=== PATIENT | female | born 1945 | race Caucasian/White ===

== ENCOUNTER 2024-08-15 13:51 | Outpatient (POV) | payer MEDICARE, SELFPAY ==
[2024-08-15 15:05] VITALS: BP 117/60; PULSE 63; RESP 18; O2SAT 98; BMI 59.1
--- NOTE | 2024-08-15 16:14 | A.OFFVIS_ITS ---
[facility] Disclaimer: The information contained in this section may have been updated after the patient was seen, as this information can be updated by other users. Medical History (Updated 08/15/24 @ 16:17 by Holley Perez APRN) Arthritis Diverticulitis of colon GERD (gastroesophageal reflux disease) Sleep apnea Arrhythmia Cancer Anemia Surgical History (Updated 08/15/24 @ 14:36 by Merary Santos RN) Hx of cholecystectomy H/O hernia repair H/O tubal ligation Family History (Updated 08/15/24 @ 14:36 by Merary Santos RN) Other Cancer Diabetes Heart disease Rheumatoid arthritis Seizures Stroke Social History (Updated 08/15/24 @ 15:04 by Merary Santos RN) Smoking Status: Never smoker alcohol intake: never current occupational status: retired Travel in the last 8 weeks: None PM Subjective & Objective Subjective Subjective:: Patient is a pleasant 79-year-old female who presents today as a new patient. She is a referral from Paul Xiao office out of [facility]. Today she rates her pain an 8 out of 10. Patient states she has pain throughout her low back and hip area. She states this is gone on for years and progressively worsened. Patient does states she believes a lot of it is more wear and tear. She describes it as a constant nagging sensation that does interfere with her ability to perform activities of daily living such as cooking and cleaning. Patient has had multiple injections through the years that she states has given good improvement that some would provide 6 months of relief however over time she feels like they may not be as effective. Patient states her last injection just did not seem to last any time before she was back to her baseline. Patient states that Paul Xiao did recommend coming to our office to see about doing surgical intervention to see whether or not she even has to continue injections. Patient denies any prior surgery history. She does state that she has tried physical therapy and felt like this did nothing for her pain. Patient has also tried [id number] Tylenol and ibuprofen along with heat and ice and topicals with minimal relief. Patient does state that she does not like taking pain medications nor is she interested in that option. Her Renzo has been reviewed and is appropriate. Review of Systems: General: No recent weight changes, no fever, no sleep disturbances Respiratory: No cough, no shortness of air, no recurring pulmonary infections Cardiovascular/peripheral vascular: No chest pain, no palpitations, no edema, no shortness of breath Gastrointestinal: No new onset incontinence, normal bowel movements reported Genitourinary: No new onset incontinence Musculoskeletal: Low back pain, bilateral hip pain Psychiatric: [Normal mood/affect] Neurological: [Denies weakness in extremities], [denies balance issues] Pain at rest (0-10 scale): 8 Objective Objective:: Physical Exam: General: Alert and oriented x3, no acute distress, pleasant and cooperative Lungs: Respirations even and unlabored, symmetrical chest expansion Eyes: PERRL Musculoskeletal: Flexion and extension of lumbar [spine] somewhat guarded secondary to pain, [antalgic gait noted] point tenderness along bilateral SIs and bilateral greater trochanteric bursa's with positive bilateral Jay Jay's, Carlton's, Gaenslen's, compression and distraction exam Neurological: Speech clear, no gross sensory deficit Has patient had previous pain injection?: No Conservative treatment options previously tried: Home exercise plan Length of treatment: Longer than 12 weeks Meds Home Medications and Allergies Home Medications ?Medication ?Instructions ?Recorded ?Confirmed ?Type atorvastatin 20 mg tablet 20 mg PO DAILY Cholesterol 08/15/24 08/15/24 History midodrine 5 mg tablet 5 mg PO TID TMJ 08/15/24 08/15/24 History pantoprazole 40 mg tablet,delayed 40 mg PO DAILY GERD 08/15/24 08/15/24 History release New Prescriptions to Start Prescriptions: Allergies Allergy/AdvReac Type Severity Reaction Status Date / Time ciprofloxacin [From Cipro] Allergy Hives Verified 08/15/24 14:37 Assessment and Plan *Assessment and plan (1) Greater trochanteric bursitis of both hips: Status: Acute Category: Medical Code(s): M70.61 - Trochanteric bursitis, right hip; M70.62 - Trochanteric bursitis, left hip (2) Bilateral sacroiliitis: Status: Acute Category: Medical Code(s): M46.1 - Sacroiliitis, not elsewhere classified (3) Chronic low back pain: Status: Acute Category: Medical Code(s): M54.50 - Low back pain, unspecified; G89.29 - Other chronic pain Plan Patient is experiencing significant pain throughout her low back and bilateral hips. Patient did have point tenderness along her bilateral SIs and bilateral greater trochanteric bursa's during today's exam. Patient was discussed regarding the injection therapy and she does think she has had a recent SI injection. I did go over with her that I do think she would benefit from bilateral bursa injections. Risk and benefits were discussed with the patient and she would like to proceed forward with this plan of care. Patient has tried and failed conservative therapy including physical therapy and continued at home stretching exercise for longer than 12 weeks. I did also review with the patient for more consistent improvement she may be a beneficial candidate of SI stabilization or even intrathecal pain pump trial in the future. Patient was given educational handouts on both of these procedures and we will follow-up at later dates. Patient will be scheduled for bilateral greater trochanteric bursa injections under fluoroscopy. Patient has been instructed to contact the clinic with any concerns before the next appointment. Dr. Esteban has reviewed this note and agrees with this plan of care. This note was dictated using voice recognition software and make contain errors or omissions. All injections are used with Lidocaine or Bupivacaine and Depo Medrol.
== END 2024-08-15 23:59 | disposition home or self-care (01) ==
LOC: SC.PAIN 14:00
PROVIDERS: PCP Internal Medicine; Visit Provider Nurse Practitioner Family
DX: M70.61 Trochanteric bursitis, right hip (principal); M70.62 Trochanteric bursitis, left hip; M46.1 Sacroiliitis, not elsewhere classified; M54.50 Low back pain, unspecified; G89.29 Other chronic pain; Z73.89 Other problems related to life management difficulty
CPT/HCPCS: 99202; G0463

== ENCOUNTER 2024-09-10 12:55 | Day surgery (SDC) | payer MEDICARE, SELFPAY ==
[2024-09-10 13:04] VITALS: BP 126/56; PULSE 64; RESP 16; O2SAT 99; BMI 24.3
[2024-09-10] MEDS: methylPREDNISolone ACETATE 80MG/ML VIAL 80 MG (13:30)
[2024-09-10] MEDS: LIDOCAINE 1% 5ML PF VIAL 5 ML (13:30)
[2024-09-10] MEDS: BUPIVACAINE 0.25% 10ML INJ 25 MG IJ (13:31)
[2024-09-10 13:43] VITALS: BP 124/86; PULSE 63; RESP 16; O2SAT 99
--- NOTE | 2024-09-10 13:52 | P.PCN_ITS ---
Procedure Date: 09/10/24 Time: 13:40 Anesthesiologist:: John Beth CRNA Complications:: None Pre-procedure Diagnosis:: Left trochanteric bursitis Post-procedure Diagnosis:: Same Indications for Procedure:: Patient is a pleasant 79-year-old female who comes our clinic today for a scheduled bilateral trochanteric bursa injection of cortisone and local anesthetic. However, patient reports only the left side is painful. She reports having difficulty lying on her left side. She has extreme point tenderness over the left trochanteric bursa. Also, patient reports her main source of pain is across the lumbar area off the midline bilaterally. Upon examination she has extreme point tenderness over the bilateral sacroiliac joints. She has positive bilateral Carlton's test. Positive bilateral John's test. Positive bilateral Gaenslen's test. Positive bilateral sacroiliac joint compression test. Positive bilateral Jay Jay's test. She rates the pain over the bilateral sacroiliac joints as 9/10. Patient has tried and failed conservative measures such as NSAIDs, acetaminophen, home exercise program. The pain is decreased her ability to perform simple ADLs. We discussed bilateral sacroiliac joint injections. She wishes to proceed. Will submit paperwork for insurance approval. Procedure Details:: Procedure:Left trochanteric bursa injection under fluoroscopy We then moved to the left trochanteric bursa.~ C-arm fluoroscopy was used to view the left greater trochanter.~ The skin and subcutaneous tissues overlying the left greater trochanter were anesthetized using lidocaine, 1.5% and a 25- gauge needle.~ After this, a 22-gauge spinal needle was inserted and advanced until it contacted the left greater trochanter.~ Dye was injected and good spread was seen throughout the left trochanteric bursa. After this, approxi mately 5 mL of bupivacaine, 0.25% and Depo-Medrol, 40 mg was incrementally injected into the left trochanteric bursa.~ The patient tolerated the procedure well with no complications. Plan and Disposition:: Patient was discharged without incident.
== END 2024-09-10 13:43 | disposition home or self-care (01) ==
LOC: SC.PAINP 12:56
PROVIDERS: PCP Internal Medicine; Visit Provider Nurse Anesthetist, Certified Registered
DX: M70.62 Trochanteric bursitis, left hip (principal)
CPT/HCPCS: 20610; 77002; J1010

== ENCOUNTER 2024-10-02 13:17 | Outpatient (POV) | payer MEDICARE, SELFPAY ==
--- NOTE | 2024-10-02 14:04 | A.OFFVIS_ITS ---
[facility] Disclaimer: The information contained in this section may have been updated after the patient was seen, as this information can be updated by other users. Medical History Arthritis Diverticulitis of colon GERD (gastroesophageal reflux disease) Sleep apnea Arrhythmia Cancer Anemia Surgical History Hx of cholecystectomy H/O hernia repair H/O tubal ligation Family History Other Cancer Diabetes Heart disease Rheumatoid arthritis Seizures Stroke Social History Smoking Status: Never smoker alcohol intake: never current occupational status: retired Travel in the last 8 weeks: None PM Subjective & Objective Subjective Subjective:: Patient is a pleasant 79-year-old female who presents today for follow-up of bilateral trochanteric bursa injections on 09/10/2024. Today she rates her pain a 5 out of 10. Patient does state that the injections did provide at least 50% improvements and that is still seem to help some. She does state that last night for what ever reason she was having a little bit more pain along the left hip. Patient does state that she did go to her first physical therapy appointment and it was just the initial evaluation. She denies any new changes from our last visit. She does state that she still feels very off balance and has to rely on assistive aids such as walkers to help with ambulation. Patient does use [id number] medications and states that she has a lot of difficulty falling to sleep because she feels like she can toss and turn more. Her Renzo has been reviewed and is appropriate. Review of Systems: General: No recent weight changes, no fever, no sleep disturbances Respiratory: No cough, no shortness of air, no recurring pulmonary infections Cardiovascular/peripheral vascular: No chest pain, no palpitations, no edema, no shortness of breath Gastrointestinal: No new onset incontinence, normal bowel movements reported Genitourinary: No new onset incontinence Musculoskeletal: Left hip pain Psychiatric: [Normal mood/affect] Neurological: [Denies weakness in extremities], [denies balance issues] Pain at rest (0-10 scale): 5 Objective Objective:: Physical Exam: General: Alert and oriented x3, no acute distress, pleasant and cooperative Lungs: Respirations even and unlabored, symmetrical chest expansion Eyes: PERRL Musculoskeletal: Flexion and extension of lumbar [spine] somewhat guarded secondary to pain, [antalgic gait noted] Neurological: Speech clear, no gross sensory deficit Has patient had previous pain injection?: Yes Percent improvement in pain since last injection: 50% Conservative treatment options previously tried: Home exercise plan Length of treatment: Longer than 12 weeks Meds Home Medications and Allergies Home Medications ?Medication ?Instructions ?Recorded ?Confirmed ?Type atorvastatin 20 mg tablet 20 mg PO DAILY Cholesterol 08/15/24 09/10/24 History midodrine 5 mg tablet 5 mg PO TID TMJ 08/15/24 09/10/24 History pantoprazole 40 mg tablet,delayed 40 mg PO DAILY GERD 08/15/24 09/10/24 History release New Prescriptions to Start Prescriptions: Allergies Allergy/AdvReac Type Severity Reaction Status Date / Time ciprofloxacin (From Cipro) Allergy Hives Verified 08/15/24 14:37 Assessment and Plan *Assessment and plan (1) Bilateral sacroiliitis: Status: Acute Category: Medical Code(s): M46.1 - Sacroiliitis, not elsewhere classified (2) Greater trochanteric bursitis of both hips: Status: Acute Category: Medical Code(s): M70.61 - Trochanteric bursitis, right hip; M70.62 - Trochanteric bursitis, left hip (3) Chronic low back pain: Status: Acute Category: Medical Code(s): M54.50 - Low back pain, unspecified; G89.29 - Other chronic pain Plan Patient did have significant improvement following her bursa injections and at this time does not need injection therapy. I did discuss with the patient that I will order a compounded cream and also send in a low-dose muscle relaxer at bedtime. We will do a 2-week supply of this medication and have her follow-up with us in 2 weeks for reevaluation of symptoms and plan of care. We will make this appointment a telehealth visit however patient was counseled if she was experiencing worsening pain just to come in to our office for further evaluation. Patient and do acknowledge understanding. Patient has been instructed to contact the clinic with any concerns before the next appointment. Dr. Bux has reviewed this note and agrees with this plan of care. This note was dictated using voice recognition software and make contain errors or omissions. All injections are used with Lidocaine or Bupivacaine and Depo Medrol.
[2024-10-02 14:16] VITALS: BP 107/64; PULSE 64; RESP 14; O2SAT 96; BMI 27.7
== END 2024-10-02 23:59 | disposition home or self-care (01) ==
PROVIDERS: PCP Internal Medicine; Visit Provider Nurse Practitioner Family
DX: M46.1 Sacroiliitis, not elsewhere classified (principal); M70.61 Trochanteric bursitis, right hip; M70.62 Trochanteric bursitis, left hip; M54.50 Low back pain, unspecified; G89.29 Other chronic pain
CPT/HCPCS: 99212; G0463

== ENCOUNTER 2024-10-14 14:16 | Outpatient (POV) | payer MEDICARE, SELFPAY ==
--- NOTE | 2024-10-14 14:21 | EXP.PAIN.SOA ---
[facility] Disclaimer: The information contained in this section may have been updated after the patient was seen, as this information can be updated by other users. Medical History Arthritis Diverticulitis of colon GERD (gastroesophageal reflux disease) Sleep apnea Arrhythmia Cancer Anemia Surgical History Hx of cholecystectomy H/O hernia repair H/O tubal ligation Family History Other Cancer Diabetes Heart disease Rheumatoid arthritis Seizures Stroke Social History Smoking Status: Never smoker alcohol intake: never current occupational status: other PM Subjective & Objective Subjective Subjective:: Patient is a pleasant 79-year-old female who presents today via telehealth appointment for follow-up. Today she rates her pain a 0 out of 10. Patient states that she has done really well between our last visit and now she states that the compounded cream really has helped along with the baclofen 5 mg at bedtime. She does state today that some days in the morning she feels like she could use a little bit extra of the baclofen however denies any side effects. Patient denies any other changes from her last appointment. This telehealth appointment is occurring at the patient's home and she has given verbal consent for this audio appointment. Her Renzo has been reviewed and is appropriate. Review of Systems: General: No recent weight changes, no fever, no sleep disturbances Respiratory: No cough, no shortness of air, no recurring pulmonary infections Cardiovascular/peripheral vascular: No chest pain, no palpitations, no edema, no shortness of breath Gastrointestinal: No new onset incontinence, normal bowel movements reported Genitourinary: No new onset incontinence Musculoskeletal: Low back pain Psychiatric: [Normal mood/affect] Neurological: [Denies weakness in extremities], [denies balance issues] Pain at rest (0-10 scale): 0 Objective Objective:: General: Alert and oriented x3, pleasant and cooperative Lungs: Patient is able to say complete sentences without dyspnea Neurological: Speech clear Has patient had previous pain injection?: No Conservative treatment options previously tried: Home exercise plan Length of treatment: Longer than 12 weeks Meds Home Medications and Allergies Home Medications ?Medication ?Instructions ?Recorded ?Confirmed ?Type atorvastatin 20 mg tablet 20 mg PO DAILY Cholesterol 08/15/24 10/02/24 History midodrine 5 mg tablet 5 mg PO TID TMJ 08/15/24 10/02/24 History pantoprazole 40 mg tablet,delayed 40 mg PO DAILY GERD 08/15/24 10/02/24 History release baclofen 5 mg tablet 5 mg PO HS #14 tabs 10/02/24 Rx New Prescriptions to Start Prescriptions: Allergies Allergy/AdvReac Type Severity Reaction Status Date / Time ciprofloxacin (From Cipro) Allergy Hives Verified 08/15/24 14:37 Assessment and Plan *Assessment and plan (1) Chronic low back pain: Status: Acute Category: Medical Code(s): M54.50 - Low back pain, unspecified; G89.29 - Other chronic pain (2) Bilateral sacroiliitis: Status: Acute Category: Medical Code(s): M46.1 - Sacroiliitis, not elsewhere classified (3) Greater trochanteric bursitis of both hips: Status: Acute Category: Medical Code(s): M70.61 - Trochanteric bursitis, right hip; M70.62 - Trochanteric bursitis, left hip Plan Patient is doing well with the compounded cream and baclofen. I did discuss with the patient that I will change the baclofen to 5 mg twice daily and provide a 1 month supply of this medication. We will follow-up with her in 1 month via telehealth appointment. Patient did make mention today that she did end up getting a bill from her last injections that were done here at the hospital and that she was charged over $250 [id number] whereas her prior injections in [place] were $35. Patient states that with her fixed income she cannot tolerate doing these injections for that cost. I did discuss with her that we can always do the injections in [place] in future if needed. We will follow-up with this at future visits. Patient has been instructed to contact the clinic with any concerns before the next appointment. Dr. Esteban has reviewed this note and agrees with this plan of care. This note was dictated using voice recognition software and make contain errors or omissions. All injections are used with Lidocaine or Bupivacaine and Depo Medrol. This visit did occur from -
== END 2024-10-14 23:59 | disposition home or self-care (01) ==
PROVIDERS: Visit Provider Nurse Practitioner Family
DX: M54.50 Low back pain, unspecified (principal); G89.29 Other chronic pain; M46.1 Sacroiliitis, not elsewhere classified; M70.61 Trochanteric bursitis, right hip; M70.62 Trochanteric bursitis, left hip
CPT/HCPCS: 99212; G0463

== ENCOUNTER 2024-11-14 10:07 | Outpatient (POV) | payer MEDICARE, SELFPAY ==
--- NOTE | 2024-11-14 10:09 | A.OFFVIS_ITS ---
[facility] Disclaimer: The information contained in this section may have been updated after the patient was seen, as this information can be updated by other users. Medical History Arthritis Diverticulitis of colon GERD (gastroesophageal reflux disease) Sleep apnea Arrhythmia Cancer Anemia Surgical History Hx of cholecystectomy H/O hernia repair H/O tubal ligation Family History Other Cancer Diabetes Heart disease Rheumatoid arthritis Seizures Stroke Social History Smoking Status: Never smoker alcohol intake: never current occupational status: other Travel in the last 8 weeks: None PM Subjective & Objective Subjective Subjective:: Patient is a pleasant 79-year-old female who presents today via telehealth for follow-up. Today she rates her pain a 0 out of 10. She denies any new trauma or injury. She does state that she is still doing very well with the compounded cream and the baclofen 5 mg twice a day. Patient does state that she did try the 2 tablets like we discussed previously and she did not notice any additional benefit. Her Renzo has been reviewed and is appropriate. Review of Systems: General: No recent weight changes, no fever, no sleep disturbances Respiratory: No cough, no shortness of air, no recurring pulmonary infections Cardiovascular/peripheral vascular: No chest pain, no palpitations, no edema, no shortness of breath Gastrointestinal: No new onset incontinence, normal bowel movements reported Genitourinary: No new onset incontinence Musculoskeletal: Low back pain Psychiatric: [Normal mood/affect] Neurological: [Denies weakness in extremities], [denies balance issues] Pain at rest (0-10 scale): 0 Objective Objective:: General: Alert and oriented x3, pleasant and cooperative Lungs: Patient is able to say complete sentences without dyspnea Neurological: Speech clear Has patient had previous pain injection?: No Conservative treatment options previously tried: Home exercise plan Length of treatment: Longer than 12 weeks Meds Home Medications and Allergies Home Medications ?Medication ?Instructions ?Recorded ?Confirmed ?Type atorvastatin 20 mg tablet 20 mg PO DAILY Cholesterol 08/15/24 10/02/24 History midodrine 5 mg tablet 5 mg PO TID TMJ 08/15/24 10/02/24 History pantoprazole 40 mg tablet,delayed 40 mg PO DAILY GERD 08/15/24 10/02/24 History release baclofen 5 mg tablet 5 mg PO BID #60 tabs 10/14/24 Rx New Prescriptions to Start Prescriptions: Allergies Allergy/AdvReac Type Severity Reaction Status Date / Time ciprofloxacin (From Cipro) Allergy Hives Verified 08/15/24 14:37 Assessment and Plan *Assessment and plan (1) Chronic low back pain: Status: Acute Category: Medical Code(s): M54.50 - Low back pain, unspecified; G89.29 - Other chronic pain Plan I will refill the patient's baclofen and provide a 3-month supply of this medication. I will also reach out and make sure she has refills on her compounded cream. Patient will return to clinic in 3 months for reevaluation of symptoms and plan of care. This visit was occurring at the patient's home and she did give verbal consent for this audio appointment. It lasted from 1005 to 1010 Patient has been instructed to contact the clinic with any concerns before the next appointment. Dr. Esteban has reviewed this note and agrees with this plan of care. This note was dictated using voice recognition software and make contain errors or omissions. All injections are used with Lidocaine, Bupivacaine and Depo Medrol. Occasionally urine drug screen is needed to verify patient's compliance with our office pain contract. This is ordered based off specific treatments related to chronic pain with the potential to abuse certain medications.
== END 2024-11-14 23:59 | disposition home or self-care (01) ==
PROVIDERS: Visit Provider Nurse Practitioner Family
DX: M54.50 Low back pain, unspecified (principal); G89.29 Other chronic pain
CPT/HCPCS: 99212; G0463

== ENCOUNTER 2024-12-13 15:05 | Outpatient (POV) | payer MEDICARE, SELFPAY ==
--- NOTE | 2024-12-13 15:55 | EXP.PAIN.SOA ---
[facility] Disclaimer: The information contained in this section may have been updated after the patient was seen, as this information can be updated by other users. Medical History Arthritis Diverticulitis of colon GERD (gastroesophageal reflux disease) Sleep apnea Arrhythmia Cancer Anemia Surgical History Hx of cholecystectomy H/O hernia repair H/O tubal ligation Family History Other Cancer Diabetes Heart disease Rheumatoid arthritis Seizures Stroke Social History Smoking Status: Never smoker alcohol intake: never current occupational status: other Travel in the last 8 weeks: None PM Subjective & Objective Subjective Subjective:: Patient is a pleasant 79-year-old female who presents today via telehealth appointment for medication refill and follow-up. Today she rates her pain a 0 out of 10. She states she is still doing very well with her overall pain. She states that she loves her compounded cream and that it significantly helps. She states that she is still using the baclofen 5 mg however she does it more once a day. She states that this does seem to work. She states she did try the twice a day but then she felt like some of her trigeminal neuralgia was acting up and was unsure if it was related to the medications so she went back to once a day. She denies any issues. Her Renzo has been reviewed and is appropriate. Review of Systems: General: No recent weight changes, no fever, no sleep disturbances Respiratory: No cough, no shortness of air, no recurring pulmonary infections Cardiovascular/peripheral vascular: No chest pain, no palpitations, no edema, no shortness of breath Gastrointestinal: No new onset incontinence, normal bowel movements reported Genitourinary: No new onset incontinence Musculoskeletal: Low back pain Psychiatric: [Normal mood/affect] Neurological: [Denies weakness in extremities], [denies balance issues] Pain at rest (0-10 scale): 0 Objective Objective:: General: Alert and oriented x3, pleasant and cooperative Lungs: Patient is able to say complete sentences without dyspnea Neurological: Speech clear Has patient had previous pain injection?: No Conservative treatment options previously tried: Home exercise plan Length of treatment: Longer than 12 Meds Home Medications and Allergies Home Medications ?Medication ?Instructions ?Recorded ?Confirmed ?Type atorvastatin 20 mg tablet 20 mg PO DAILY Cholesterol 08/15/24 10/02/24 History midodrine 5 mg tablet 5 mg PO TID TMJ 08/15/24 10/02/24 History pantoprazole 40 mg tablet,delayed 40 mg PO DAILY GERD 08/15/24 10/02/24 History release baclofen 5 mg tablet 5 mg PO BID #60 tabs 11/14/24 Rx New Prescriptions to Start Prescriptions: Allergies Allergy/AdvReac Type Severity Reaction Status Date / Time ciprofloxacin (From Cipro) Allergy Hives Verified 08/15/24 14:37 Assessment and Plan *Assessment and plan (1) Chronic low back pain: Status: Acute Category: Medical Code(s): M54.50 - Low back pain, unspecified; G89.29 - Other chronic pain Plan Patient is still getting significant relief with the combination of baclofen 5 mg at bedtime and compounded cream. I will make sure she has refills and have her follow-up in 3 months. Patient did have this visit occurring at her home and did give verbal consent for the audio appointment. It lasted from 1550- 1555. Patient has been instructed to contact the clinic with any concerns before the next appointment. Dr. Esteban has reviewed this note and agrees with this plan of care. This note was dictated using voice recognition software and make contain errors or omissions. All injections are used with Lidocaine, Bupivacaine and Depo Medrol. Occasionally urine drug screen is needed to verify patient's compliance with our office pain contract. This is ordered based off specific treatments related to chronic pain with the potential to abuse certain medications.
== END 2024-12-13 23:59 | disposition home or self-care (01) ==
PROVIDERS: Visit Provider Nurse Practitioner Family
DX: M54.50 Low back pain, unspecified (principal); G89.29 Other chronic pain
CPT/HCPCS: 99212; G0463

== ENCOUNTER 2025-04-07 14:03 | Outpatient (POV) | payer MEDICARE, SELFPAY ==
--- OUTSIDE RECORDS SUMMARY | 2025-04-07 14:06 | XMS_ITS | Data Portability ---
Author Organization [facility] ORA Ramírez [place] CLOS[place] Address [address] [facility] [address] [place] [address] Assessment Encounter Date Assessment Date Assessment LastModified by Organization Details LastModified Time 11/25/2020 11/25/2020 1. Preoperative cardiac risk assessment Not available 11/25/2020 13:51:47 Plan of Treatment Reminders Order Date Submit Date Provider Last Modified By Organization Details Last Modified Time Details Appointments None recorded. Lab None recorded. Referral None recorded. Procedures None recorded. Surgeries None recorded. Imaging electrocard iogram [email or web address] [facility] Cardiology [facility], [facility] [address], [facility], [place], [address], 13:53:12 Medication Orders None recorded. Patient TargetsNo targets recorded. Patient Instructions Encounter Date Encounter Id Patient Instructions Last Modified By Organization Details Last Modified Time 11/25/2020 [id number] EKG is normal. Findings discussed with the patient. No cardiac complaints. No risk factors for coronary artery disease. Patient demonstrates low surgical risk from cardiac standpoint. Follow when necessary Not available 11/25/2020 13:53:11 Reason for Referral None Reported. Results Created Date Observation Date Name Description Value Unit Range Abnormal Flag Note LastModifiedBy Organization Detail LastModifiedTime 11/30/19 21 11/25/2020 elect bryan diogr am No observ ation record ed. BARCODE [facility] Cardiology [address] [facility], [place], [address], 11/30/2020 10:56:15 Result Notes None recorded. Problems Name Problem SNOMED Code Status Onset Date Resolution Date Notes Provider Name and Address Organization Details Recorded Time Risk assessmen t Active 2020 MARICARMEN CANTU PA-C [address] [place], [address] , [facility] 1 13:52:14 Screening for disorder Active 2020 MARICARMEN CANTU PA-C [address] [place], [address] , [facility] 1 13:52:32 Incomplet e passage of stool 131660009 Active 2015 From Automated Load;Provi derrick: Desmond Cummings;Statu s: Active Not Available [facility] 6 05:32:14 Clinical finding Active 2014 From Automated Load;Provi derrick: Desmond Cummings;Statu s: Active Not Available [facility] 05:32:14 Psycholog ic conversio n disorder 24482981 Active 2014 From Automated Load;Provi derrick: Desmond Cummings;Statu s: Active Not Available [facility] 6 05:32:14 Gastroint estinal tract finding Active 2014 From Automated Load;Provi derrick: Desmond Cummings;Statu s: Active Not Available [facility] 6 05:32:14 Dysphagia 15655427 Active 2014 From Automated Load;Provi derrick: Desmond Cummings;Statu s: Active Not Available [facility] 6 05:32:56 Abdominal pain 92369184 Active 2015 From Automated Load;Provi derrick: Hernesto JamesonSta tus: Active Not Available [facility] 6 05:32:56 Constipat ion 13385221 Active 2015 From Automated Load;Provi derrick: Jenfier Jameson;Sta tus: Active Not Available [facility] 6 05:32:56 Diffuse spasm of esophagus 73932845 Active 2015 From Automated Load;Provi derrick: Desmond Cummings;Statu s: Active Not Available [facility] 6 05:32:56 Problem Notes None recorded. Procedures Surgical History Date Name Laterality Status Provider Name and Address Organization Details Recorded Time 11/25/2020 EKG completed MARICARMEN CANTU PA-C [address] [place], [address], [facility] 11/25/2020 13:51:29 Imaging Results Imaging Date Name Status LastModified by Organization Details LastModified Time 11/25/2020 electrocardiogram completed BARCODE [facility] [address] [place] [address] [address], [place], [address], 11/30/2020 10:56:15 Procedure Notes None recorded. Medical Equipment None Reported. Allergies No known drug allergies Medications Name Sig Start Date Stop Date Status Note LastModified by Organization Details LastModified Time Tegretol 100 mg chewable tablet Three times a day 2009 active Instructio ns: decrease to 2 bid as tolerated; Frequency: tid;Medica tion Descriptio n: carbamazep ine; Dosage:2; Route:oral ; refills:3; Quantity:1 20 tablet, chewable Not Available Not Available Not Available Prilosec 40 mg capsule,de layed release Daily active Frequency: daily;Medi cation Descriptio n: omeprazole ; Dosage:1; Route:oral ; refills:0; Quantity:3 0 delayed release capsule Not Available Not Available Not Available buspirone 10 mg tablet Three times a day 2015 active Duration: 90 days;Instr uctions: TAKE 1 TABLET THREE TIMES DAILY;Freq uency: tid;Medica tion Descriptio n: buspirone; Dosage:1; Route:oral ; refills:3; Quantity:2 70 tablet Not Available Not Available Not Available fluticason e propionate 50 mcg/actuat ion nasal spray,susp ension active Medication Descriptio n: fluticason e nasal; Dosage:1; Route:nasa l; refills:0; Quantity:1 spray Not Available Not Available Not Available Benefiber Daily active Frequency: daily;Medi cation Descriptio n: OTC; Dosage:1; Route:oral ; refills:0; Quantity:o tc powder for reconstitu tion Not Available Not Available Not Available Intio 1.5 billion cell capsule active Medication Descriptio n: bifidobact erium-lact obacillus; Route:oral ; refills:0 Not Available Not Available Not Available domperidon e 10 mg tablet before meals and at bedtime 2012 active Frequency: ac and hs;Medicat ion Descriptio n: Compound Med; Dosage:4; Route:oral ; refills:5; Quantity:1 20 tablet Not Available Not Available Not Available Vitals Date Recorded Body height Body mass index (BMI) Body weight Heart rate Systolic blood pressure Diastolic blood pressure Provider Name and Address Organization Details Last Updated DateTime 1 162.56 cm 25.9 kg/m2 78443.4 5 g 68 /min 112 mm[Hg] 60 mm[Hg] Susannahbrain Farnsworth [facility] 11:22:24 Social History Question Answer Notes LastModified by Organizat ion Details LastModified Time Tobacco Smoking Status Never [facility]oker [facility] 11/25/2020 11:22:40 What Was The Date Of Your Most Recent Tobacco Screening? 11/25/2020 Information not available 11/25/2020 How Much Tobacco Do You Smoke? No Information not available 11/25/2020 Sex: Unknown Functional Status Question Answer Note LastModified by Organizat ion Details LastModified Time Do you or have you ever used smokeless tobacco? Never used smokeless tobacco Information not available 11/25/2020 What is your occupation? [employer] Information not available 11/25/2020 Mental Status None recorded. Family History Nothing Reported. Medical History Condition Response Coronary Artery Disease N Atrial Fibrillation N Thyroid Disease N Heart Arrhythmia N COPD N Lung Disease N Pacemaker N Peripheral Arterial Disease N Edema N Nervous Illness N Vascular Disease N Anxiety Disorder N Hiatal hernia N Acid Reflux (GERD) N Cancer N Stroke N History of Blood Thinners N Blood Thinners N Shortness of Breath N High Cholesterol N Arrhythmia N Endocrine Disorder N Heart Problems N Heart Conditions N Implanted Cardiac Device N Black Lung N Thyroid Problems N Chest Pain N Ulcers N Heart Attack (AL) N Diabetes N Rheumatic Fever N Cardiomyopathy N Bleeding Disorder N Heart Murmur N Tuberculosis N AIDS/HIV N Congestive Heart Failure (CHF) N Hyperlipidemia N Asthma N Cardiac Disease N Peripheral Vascular Disease N Sleep Apnea N Jaundice N Warfarin Management N GERD/Reflux N Heart Disease N Restless leg syndrome N Hypertension N Gynecological HistoryNo gynecological history recorded. Obstetrics History GPAL:G 0 P 0 0 0 0 Past Encounters Encounter ID Performer Location Encounter Start Date Encounter Closed Date Diagnosis/Indication Diagnosis SNOMED-CT Code Diagnosis ICD10 Code Diagnosis Note [id number] MARICARMEN CANTU PA-C CARDIOLOG Y [address] [place] [address] 11/25/2020 10:49:08 11/26/2020 09:58:54 Screening for disorder 373730044 Z13.9 Health Concerns Section Related Observation LastModified by Organization Detai ls LastModified Time None Recorded Concern Status LastModified by Organization Details LastModified Time None Recorded Advance Directives Directive None Recorded Payers Insurance Date Sequence Insurance Name Policy Number Policy Calderon Covered Member ID Calderon Member ID Guarantor Name 11/25/2020 1 [place] Cassie Campbell [id number] Cassie Campbell 11/25/2020 1 [employer] - [employer] (MEDICARE REPLACEMENT HMO) Cassie Campbell [id number] Cassie Campbell Notes Date Note Type Note Provider Name and Address Organization Details Recorded Time 11/25/2020 text/html delightful 75 yo WF who is seen in consultation from Az Marie MD for preoperative cardiac evaluation. Patient has no prior cardiac history. she gives no history of hypertension, diabetes or hyperlipidemia. She quit smoking 30+ years ago. There is no family history for premature coronary artery disease. She is without chest pain palpitations dizziness syncope or shortness of breath. Only medical issue is irritable bowel syndrome. At work she sustained right upper extremity injury and is anticipating surgery. MARICARMEN CANTU PA-C [address] [place], [address], [facility] 11/25/2020 13:54:44 OBGyn Episode No OBEpisode recorded.
--- OUTSIDE RECORDS SUMMARY | 2025-04-07 14:06 | XMS_ITS | Data Portability ---
Author Organization [facility] & MAYUR Van ADMIN Address [address] [place] [address] Care Team Providers Care Creative Services Producer Name Role Phone ERNIE ESCOBEDO Primary Care Provider Unavailab le Assessment No assessment recorded. Plan of Treatment Reminders Order Date Submit Date Provider Last Modified By Organization Details Last Modified Time Details Appointments OV EST 15 2024 01:45P Gertrude Mcclain MD Not available Not available Not available Lab None recorded . Referral None recorded . Procedures None recorded . Surgeries None recorded . Imaging electroc ardiogra m 2024 025 [facility], [address], [place], [address], 01/24/2025 09:34:24 US, echocard iogram, transtho racic, complete , w/ color flow 2024 025 [facility], [address], [place], [address], 01/21/2025 11:20:42 US, duplex, carotid artery 2024 025 [facility], [address], [place], [address], 01/09/2025 04:08:46 event monitor 2024 025 [facility], [address], [place], [address], 01/14/2025 11:14:05 Medication Orders carbamaz epine ER 200 mg tablet,e xtended release, 12 hr 2022 023 [id number], [address] [place], [address], 11/29/2022 14:53:33 Medrol (Kalyan) 4 mg tablets in a dose pack 2022 023 [id number], [address] [place], [address], 11/29/2022 14:53:33 gabapent in 300 mg capsule 2022 023 [id number] [address] [place], [address], 11/29/2022 14:24:29 Patient TargetsNo targets recorded. Patient Instructions Encounter Date Encounter Id Patient Instructions Last Modified By Organization Details Last Modified Time 10/27/2022 [id number] Debbie does not have any findings of BPPV today. Advised switching position very slowly for BP equalibration and to prevent concern for falling. She will report to us if her symptoms return. [email or web address] Not available 11/03/2022 12:40:40 Reason for Referral None Reported. Results Created Date Observation Date Name Description Value Unit Range Abnormal Flag Note LastModifiedBy Organization Detail LastModifiedTime 03/06/20 23 04/15/2022 XR, chest , 2 view No observ ation record ed. [email or web address] Not Available 2022 11:49:26 01/14/20 25 12/26/2024 event monit or No observ ation record ed. [facility] [address], [place], [address], 01/14/2025 11:14:05 01/15/20 25 01/14/2025 US, echoc ardio gram, trans thora cic, compl ete, w/ color flow [facility] [address] [place] [address] Phone: Fax: Name: DEBBIE CAMPBELL Exam Date: : 946 Age 79 years Gender : F Access ion: [id number] Physic sarahi: TRAV SHIELDS Facili ty: [facility] Facili ty HSV: Outpat ient Exam: ECHO W OR WO/W CONTRA ST Reason for Study: Syncop e SUMMAR Y Normal LV size with normal functi on. The ejecti on fracti on is 55-60% . No hemody namica lly signif icant valvul ar heart diseas e. Normal PA pressu re (23 mmHg). INTERP RETATI ON DETAIL Good qualit y study. Left ventri burak: The left ventri burak is normal in size with normal systol ic functi on. The ejecti on fracti on is 55-60% . There is normal LV wall thickn ess. LV geomet ry is normal . The left ventri cular wall motion is normal . Left atrium : The left atrium is normal . LA volume : 37.5mL , LA volume index: 23.0mL /mA . Right ventri burak: The right ventri burak is normal in size with normal functi on. Right atrium : The right atrium is normal . Mitral valve: The mitral valve is normal . There is no mitral stenos is. There is trace mitral regurg itatio n. Aortic valve: The aortic valve is normal and trilea flet. There is no aortic stenos is. There is trace aortic regurg itatio n. (AR Decel= 0.316 m/secA ). AR pressu re half time=2 602ms. Tricus pid valve: The tricus pid valve is normal . There is trace tricus pid regurg itatio n. PASP= 23 mmHg, RAP=7m mHg. Pulmon ic valve: The pulmon ic valve is normal . There is mild pulmon ic regurg itatio n. Perica rdium: The perica rdium is normal . Pulmon rama artery : The pulmon rama artery is normal . Intera trial septum : The intera trial septum is normal . A contra st inject ion demons trates an intera trial shunt with passag e of contra st from right to left. The intera trial septum is aneury smal. Aorta: The aorta is normal . The aortic root is normal . Aortic dimens ions - Ao M-mode = 3.60cm , Ascend ing=2. 80cm. Vena Cava: The inferi or vena cava is normal . MEASUR EMENTS Left Ventri burak IVSd: 0.90cm (0.6-1 .1cm) PWd: 0.90cm (0.6-1 .1cm) Mass Keeley: 114g LVMI: 70g/mA (>50-9 5g/m) LVIDd: 4.10cm (3.7-5 .6 cm) LVIDdI : 2.52cm /m2 LVIDs: 2.80cm (1.8-4 .2 cm) LVIDsI : 1.72cm /m2 RWT: 0.44 (<0.42 ) E to A: 0.67 (0.6-2 ) E-e prime med: 6.75 E-e prime lat: 4.50 Decel: 290.00 ms (168-2 32ms) Max Valve Veloci ties LVOT: 127.00 cm/sec Legall y authen ticate d by MARQUISE Hale 01-15 09:20: 50 Pulmon rama RAP: 7mmHg PASP: 23mmHg Atria LA AP: 3.6cm LA vol: 37.5mL KARI: 23.0mL /mA (16-28 ml/m^2 ) Electr onical ly signed by Dr. Trav treadwell on 2024 at 9:20 AM Dictat ed By: TRAV SHIELDS Transc ribed By: Transc ribed On: 025 9:20 AM Electr onical ly signed by: TRAV SHIELDS 025 Thank you for referr DEBBIE Briones to [facility]. Legall y authen ticate d by MARQUISE Hale 01-15 09:20: 50 CC'ed Logic: Orderi ng Provid er: MARQUISE Hale [facility] [address], [place], [address], 01/21/2025 11:20:42 01/15/20 25 12/26/2024 event monit or No observ ation record ed. [facility] [address], [place], [address], 03/31/2025 10:22:08 01/23/20 25 01/22/2025 elect rocar diogr am No observ ation record ed. [facility] [address], [place], [address], 01/22/2025 16:31:20 01/23/20 25 01/22/2025 elect rocar diogr am No observ ation record ed. [facility] [address], [place], [address], 01/22/2025 16:31:11 Result Notes None recorded. Problems Name Problem SNOMED Code Status Onset Date Resolution Date Notes Provider Name and Address Organization Details Recorded Time Trigeminal neuralgia 00022105 Active Dorie Marcial null, [place] [facility] [place] [facility] [place] 2 10:03:27 Benign neoplasm of colon 11581563 Active Dorie Marcial [place] [facility] [place] 2 10:03:27 Gastroesophage al reflux disease 065553863 Active Dorie Marcial [place] [facility] [place] 2 10:03:27 Hyperlipidemia 86481253 Active Dorie Marcial [place] [facility] [place] 2 10:03:27 History of polyp of colon 437775605 Active Dorie Marcial [place] [facility] [place] 2 10:03:27 Obstruction of bile duct 04571260 Active Dorie Marcial [place] [facility] [place] 2 10:03:27 Irritable bowel syndrome 46586757 Active Dorie Marcial [place] [facility] [place] 2 10:03:27 Dysphagia 02353039 Active Dorie Marcial [place] [facility] [place] 2 10:03:27 History of malignant lymphoma 730633664 Active Dorie Marcial null[place] [facility] [place] 2 10:03:27 Problem Notes None recorded. Procedures Surgical History Date Name Laterality Status Provider Name and Address Organization Details Recorded Time 11/26/19 21 insertion of rafael through fracture completed Paz Bains [place] - [facility] & [place] 11/29/2022 14:28:38 11/20/19 07 Cholecystectomy completed Tamar Almeida DO [address], [place], [address], [place] [facility] & [place] 11/27/2022 14:38:49 11/20/18 80 Tubal Ligation completed Tamar Almeida DO [address], [place], [address], [facility] - [facility] & [place] 11/27/2022 14:38:40 Dilation and curettage completed Tamar Almeida DO [address], [place], [address], [place] [facility] & [place] 11/27/2022 14:39:13 gamma ray therapy completed Tamar Almeida DO [address], [place], [address], [place] [facility] & [place] 11/27/2022 14:40:04 Imaging Results Imaging Date Name Status LastModified by Organization Details LastModified Time 04/15/2022 XR, chest, 2 view completed [email or web address] Informa tion not available 03/06/2023 11:49:26 12/26/2024 event monitor completed [facility] [address], [place], [address], 01/14/2025 11:14:05 01/14/2025 US, echocardiogram, transthoracic, complete, w/ color flow completed [facility] [address], [place], [address], 01/21/2025 11:20:42 12/26/2024 event monitor completed [facility] [address], [place], [address], 03/31/2025 10:22:08 01/22/2025 electrocardiogram completed [facility] [address], [place], [address], 01/22/2025 16:31:20 01/22/2025 electrocardiogram completed [facility] [address], [place], [address], 01/22/2025 16:31:11 Procedure Notes None recorded. Medical Equipment None Reported. Allergies Allergen ID Allergen Name Allergen Category Reaction Reaction Severity Criticality Documentation Date Start Date Code Code System Note Provider Name and Address Organization Details Recorded Time 31815 cefdinir medicatio n itching Not available Not available 08/03/2022 78806 RxNorm Dania Morel cory [place] Horacio [facility] 4 15:29:26 05455 Augmentin medicatio n nausea Not available Not available 11/22/2022 31000 2 RxNorm Marisol Sharad ray [place] Horacio [facility] & [place] 3 13:09:09 Medications Name Sig Start Date Stop Date Status Note LastModified by Organization Details LastModified Time promethazin e-DM 6.25 mg-15 mg/5 mL oral syrup TAKE 5 MILLILITE R(S) EVERY 4 TO 6 HOURS NEEDED 12/26 completed Not Available Not Available Not Available atorvastati n 20 mg tablet TAKE 1 TABLET DAILY active Not Available Not Available No t Available guaifenesin ER 600 mg tablet,exte nded release Take 1 {tablet} by oral route. 10/03 completed Not Available Not Available Not Available azithromyci n 250 mg tablet TAKE 2 TABLETS BY MOUTH TODAY, THEN TAKE 1 TABLET DAILY FOR 4 DAYS 11/29 completed Not Available Not Available Not Available fluconazole 150 mg tablet TAKE 1 TABLET BY MOUTH EVERY DAY NEEDED 12/26 completed Not Available Not Available Not Available Claritin 10 mg tablet 1 {tablet} by oral route. active Not Available Not Available No t Available ondansetron HCl 8 mg tablet TAKE 1 TABLET BY MOUTH EVERY 8 HOURS NEEDED FOR NAUSEA OR VOMITING. 12/26 completed Not Available Not Available Not Available ondansetron HCl 4 mg tablet TAKE 1 TABLET BY MOUTH EVERY 6 HOURS NEEDED active Not Available Not Available No t Available prednisone 20 mg tablet TAKE 2 TABLETS BY MOUTH EVERY DAY FOR 5 DAYS 10/03 completed Not Available Not Available Not Available midodrine 5 mg tablet TAKE 1 TABLET BY MOUTH THREE TIMES A DAY active Not Available Not Available No t Available omeprazole 40 mg capsule,del ayed release Take 1 capsule every day by oral route for 90 days. 12/26 completed Not Available Not Available Not Available tramadol 50 mg tablet TAKE 1 EVERY 6 HOURS 12/26 completed Not Available Not Available Not Available meclizine 25 mg tablet TAKE 1 TABLET BY MOUTH THREE TIMES A DAY 12/26 completed Not Available Not Available Not Available carbamazepi ne ER 200 mg tablet,exte nded release,12 hr 2 TABLETS IN THE MORNING 2 TABLETS AT NIGHT active Not Available Not Available No t Available cephalexin 500 mg capsule active Not Available Not Available Not Available pantoprazol e 40 mg tablet,bj yed release TAKE 1 TABLET BY MOUTH EVERY DAY active Not Available Not Available No t Available hyoscyamine sulfate 0.125 mg tablet Take 1 {tablet_a s_needed} by oral route. 10/03 completed Not Available Not Available Not Available buspirone 10 mg tablet Take 1 {tablet} by oral route. 12/26 completed Not Available Not Available Not Available lidocaine 5 % topical patch APPLY 1 PATCH TRANSDERM AL ROUTE 2 TIMES PER DAY LEAVE ON MOST PAINFUL AREA FOR UP TO 12 HRS active Not Available Not Available No t Available gabapentin 300 mg capsule TAKE 1 CAPSULE BY MOUTH THREE TIMES A DAY FOR 7 DAYS 01/10 /2023 completed Not Available Not Available Not Available Tylenol 325 mg tablet 1 {tablet_a s_needed} 6 times a day by oral route. active Not Available Not Available No t Available levofloxaci n 750 mg tablet TAKE 1 TABLET BY MOUTH EVERY DAY FOR 7 DAYS 12/26 completed Not Available Not Available Not Available methylpredn isolone 4 mg tablets in a dose pack TAKE 6 TABLETS ON DAY 1 DIRECTED ON PACKAGE AND DECREASE BY 1 TAB EACH DAY FOR A TOTAL OF 6 DAYS active Not Available Not Available No t Available albuterol sulfate HFA 90 mcg/actuati on aerosol inhaler INHALE 1 PUFF INTO THE LUNGS EVERY 4 HOURS NEEDED 10/03 completed Not Available Not Available Not Available amoxicillin 875 mg-potassiu m clavulanate 125 mg tablet Take 1 tablet twice a day by oral route for 10 days. 11/22 completed Not Available Not Available Not Available cholecalcif taz (vitamin D3) 25 mcg (1,000 unit) capsule Take 1 {capsule} by oral route. 12/26 completed Not Available Not Available Not Available nitrofurant oin monohydrate /macrocryst als 100 mg capsule TAKE 1 CAPSULE BY MOUTH TWICE A DAY active Not Available Not Available No t Available cholecalcif taz (vitamin D3) 25 mcg (1,000 unit) tablet 1 TABLET DAILY 12/26 completed Not Available Not Available Not Available Mucus Relief ER 600 mg tablet, extended release TAKE 1 TABLET ORALLY EVERY 12 HRS NEEDED 10/03 completed Not Available Not Available Not Available Flonase Allergy Relief 50 mcg/actuati on nasal spray,suspe nsion Alleene 1 {spray_in _each_nos tril} by nasal route. 12/26 completed Not Available Not Available Not Available baclofen 5 mg tablet TAKE 1 TABLET ORALLY AT BEDTIME NIGHTLY active Not Available Not Available No t Available Vitals Date Recorded Body height Body temperature Heart rate Body mass index (BMI) Body weight Systolic blood pressure Diastolic blood pressure Provider Name and Address Organization Details Last Updated DateTime 3 152.4 cm 97.4 [degF] 67 /min 29.3 kg/m2 22973.1 4 g 128 mm[Hg] 70 mm[Hg] Marisol Orourke [place] - [facility] & [place] 3 13:12:47 Date Recorded Body height Body mass index (BMI) Body weight Heart rate Systolic blood pressure Diastolic blood pressure Provider Name and Address Organization Details Last Updated DateTime 3 152.4 cm 28.3 kg/m2 34381.8 9 g 65 /min 130 mm[Hg] 76 mm[Hg] Paz Bains [facility] & [place] 3 14:22:51 Date Recorded Body weight Body mass index (BMI) Body height Oxygen saturation Oxygen saturation in Arterial blood by Pulse oximetry Heart rate Systolic blood pressure Diastolic blood pressure Systolic blood pressure Diastolic blood pressure Provider Name and Address Organization Details Last Updated DateTime 5 18974.1 8 g 27 kg/m2 152.4 cm 98 % 98 % 68 /min 125 mm[Hg] 68 mm[Hg] 128 mm[Hg] 68 mm[Hg] Lakeshia Eason [facility] & [place] 5 15:30:10 Date Recorded Body height Body mass index (BMI) Body weight Oxygen saturation Oxygen saturation in Arterial blood by Pulse oximetry Heart rate Systolic blood pressure Diastolic blood pressure Provider Name and Address Organization Details Last Updated DateTime 5 152.4 cm 26.6 kg/m2 69342.5 6 g 98 % 98 % 65 /min 124 mm[Hg] 75 mm[Hg] Lakeshia Eason [facility] & [place] 5 13:01:53 Date Recorded Body height Body mass index (BMI) Body weight Body temperature Heart rate Systolic blood pressure Diastolic blood pressure Provider Name and Address Organization Details Last Updated DateTime 2 152.4 cm 29.3 kg/m2 02951.8 6 g 97.8 [degF] 77 /min 147 mm[Hg] 77 mm[Hg] Hanna Catalina [facility] & [place] 2 13:17:40 Social History Question Answer Notes LastModified by Organizat ion Details LastModified Time Tobacco Smoking Status Former Smoker Not Available [employer] 08/19/2022 18:01:21 Are You Blind Or Do You Have Difficulty Seeing? No Information not available 10/03/2022 What Is Your Level Of Caffeine Consumption? Occasional [email or web address] Information not available 11/28/2022 In The 14 Days Before Symptom Onset, Have You Had Close Contact With A Laboratory-confir med COVID-19 While That Case Was Ill? No Information not available 10/03/2022 In The 14 Days Before Symptom Onset, Have You Had Close Contact With A Person Who Is Under Investigation For COVID-19 While That Person Was Ill? No Information not available 10/03/2022 Have You Been To An Area Known To Be High Risk For COVID-19? No Information not available 10/03/2022 Are You Deaf Or Do You Have Serious Difficulty Hearing? No Information not available 10/03/2022 Have You Processed Blood Or Body Fluids From An Ebola Virus Disease Patient Without Appropriate PPE? No Information not available 10/03/2022 Do You Reside In Or Have You Traveled To An Area Where Ebola Virus Transmission Is Active? No Information not available 10/03/2022 Have You Recently Or Are You Planning To Travel To An Area With Zika Virus? No Information not available 10/03/2022 Do You Have Any Pets? No Information not available 11/29/2022 What Is Your Relationship Status? Lives With Spouse , House [email or web address] Information not available 11/28/2022 Has Tobacco Cessation Counseling Been Provided? No Information not available 10/03/2022 Do You Have Difficulty Walking Or Climbing Stairs? No Information not available 10/03/2022 Are You Currently In School? No Diploma Information not available 11/29/2022 Sex: Female Functional Status Question Answer Note LastModified by Organizat ion Details LastModified Time Do you use any illicit or recreational drugs? No [email or web address] Information not available 11/28/2022 Do you or have you ever used any other forms of tobacco or nicotine? No Information not available 10/03/2022 What is your level of alcohol consumption? 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 No drives occ. Information not available 11/29/2022 Do you have difficulty doing errands alone? No Information not available 10/03/2022 Are you able to care for yourself? Yes Information n ot available 10/03/2022 Do you have difficulty dressing or bathing? No Information not available 10/03/2022 Mental Status Question Answer Note LastModified by Organization D etails LastModified Time Do you have difficulty concentrating, remembering or making decisions? No Information no t available 10/03/2022 Family History Relationship Description Onset Age of this Age Resolved Age Notes LastModified by Organization Details LastModified Time Father No current problems or disability Not available 10/03 13:09:30 Father Hypertensive disorder [email or web address] Not available 2022 15:17:23 Father Heart disease [email or web address] Not available 2022 15:17:32 Father Malignant neoplasm of lung [email or web address] Not available 2022 15:17:38 Father Hyperlipidem ia [email or web address] Not available 2022 15:17:49 Father Headache [email or web address] Not availabl e 11/28/2022 15:17:55 Mother No current problems or disability Not available 10/03 13:09:30 Mother Coronary arterioscler osis [email or web address] Not available 2022 15:17:03 Mother Transient cerebral ischemia [email or web address] Not available 2022 15:17:12 Sister Malignant neoplasm of ovary Not available 2022 15:18:07 Daughter Diabetes mellitus [email or web address] Not available 2022 15:18:18 Daughter Migraine [email or web address] Not availa ble 11/28/2022 15:18:25 Medical History Condition Response Coronary Artery Disease N COPD N Obesity N Arthritis Y Mental Disorder N Cancer Y High Cholesterol Y Migraines Y GI Problems Y Anemia Y Back Pain Y Neurological Problems Y Congestive Heart Failure (CHF) N Hyperlipidemia Y Diverticulitis N Asthma Y Reflux/GERD Y Osteoporosis Y Gynecological HistoryNo gynecological history recorded. Obstetrics History GPAL:G 0 P 0 0 0 0 Immunizations Vaccine Type Date Status Note Provider Nam e and Address Organization Details Recorded Time zoster recombinant 2 completed Elmore Cote null, [place] [facility] [place] 10/03/2022 13:08:59 COVID-19, mRNA, LNP-S, PF, 100 mcg/0.5mL dose or 50 mcg/0.25mL dose 1 completed Elmore Cote null, [place] [facility] [place] 10/03/2022 13:08:59 Influenza, high-dose, quadrivalent, PF 2 completed Nuvia Cote [place] [facility] 10/03/2022 13:08:59 Influenza, high-dose, trivalent, PF 8 completed Nuvia [place] null[place] [facility] 10/03/2022 13:09:00 COVID-19, mRNA, LNP-S, PF, 100 mcg/0.5mL dose or 50 mcg/0.25mL dose 1 completed Nuvia [place] null[place] [facility] [place] 10/03/2022 13:09:00 Influenza, adjuvanted, trivalent, PF 9 completed Nuvia Cote null, [place] [facility] [facility] & [place] 10/03/2022 13:09:00 COVID-19, mRNA, LNP-S, PF, 100 mcg/0.5mL dose or 50 mcg/0.25mL dose 1 completed Nuvia [place] null[place] [facility] 10/03/2022 13:09:00 zoster recombinant 2 completed Nuvia Cote [place] [facility] 10/03/2022 13:09:00 Influenza, adjuvanted, quadrivalent, PF 0 completed Elmore Cote [place] [facility] 10/03/2022 13:09:00 pneumococcal polysaccharide PPV23 1 completed Nuvia Al[place]ar[place]ess null[place] [facility] 10/03/2022 13:09:00 COVID-19, mRNA, LNP-S, PF, 100 mcg/0.5mL dose or 50 mcg/0.25mL dose 2 completed Nuvia Cote null, [place] - [facility] - [place] 10/03/2022 13:09:00 Hep A, adult 8 completed Nuvia Watkinss null, [place] - [facility] - [place] [facility] [place] 10/03/2022 13:09:00 Influenza, high-dose, trivalent, PF 7 completed Nuvia Watkinss null, [place] - [facility] - [place] [facility] [place] 10/03/2022 13:09:00 Influenza, split virus, quadrivalent, PF 6 completed Nuvia Cote null, [place] - [facility] - [place] [facility] [place] 10/03/2022 13:09:00 Past Encounters Encounter ID Performer Location Encounter Start Date Encounter Closed Date Diagnosis/Indication Diagnosis SNOMED-CT Code Diagnosis ICD10 Code Diagnosis Note [id number] [facility] [place] [address] 10/03/2022 13:02:46 10/03/2022 14:36:56 Vertigo 019729908 R42 J30.[address] Hernandez for evaluation . Patient would like to see ENT before ernestine g formal PT for the dizziness. Continue current allergy medication s. Nausea 548610892 R11.0 [id number] MD [facility] [place] [address] 10/26/2022 15:23:55 10/26/2022 16:21:18 Acute sinusitis 51658753 J01.90 Recommend use of Mucinex. Continue Flonase. [id number] Isabela Hernandez MD [facility] [place] [address] 10/27/2022 13:02:20 10/27/2022 13:39:01 Impairment of balance 102149951 R26.89 [id number] MD Ten [facility] and IM [facility] [address] [place] [address] 11/22/2022 12:57:26 11/22/2022 13:37:32 Trigeminal neuralgia 85024929 G50.0 Sending in a short course of Gabapentin to try at this time. Patient is calling neurology office to try to make an appt when neurologis t is back in the office later this week. [id number] DO DARIUS Maguire [facility] Neurology [address] [facility],[address] [place] [address] 11/29/2022 13:57:06 11/29/2022 14:59:21 Trigeminal neuralgia 79823872 G50.0 Acute flare up of her Left TGN. Will have her continue the tegretol with taking an extra pill at bedtime. She needs refills for the extra dosing.Adrián serna start her on a medrol dose pack as this worked for her when she had a flare up a few years ago. [id number] Danial Mcclain MD [place] [id number] [facility] [facility] [address] [place] [address] 12/26/2024 14:52:17 12/26/2024 15:35:45 Syncope 835510302 R55 Recurrent episodes of syncope with ER visit on 12/11/2024 . No warning sinus. No signs of seizure. Follow up event monitor and echocardio gram and carotid Doppler Lexiscan. Dyslipidemia [id number] E 78.5 Dyslipidem ia on statin follow up fasting lipid profile. History of hypotension [id number] Z86.79 patient has been on midodrine. Blood pressure stable. No orthostati c hypotensio n. Screening for cardiovascular system disease [id number] Z13.6 patient physically active denied chest pain. She has exertional shortness of breath. She has a risk factors for coronary artery disease. After the syncope workup recommend ischemic workup with a stress test. [id number] Danial Mcclain MD [place] [id number], Located Within [facility] [address] [place] [address] 01/22/2025 12:37:02 01/22/2025 13:21:22 Dyslipidemia [id number] E78.5 Dyslipidem ia on statin follow up fasting lipid profile. Screening for cardiovascular system disease [id number] Z13.6 patient physically active denied chest pain. She has exertional shortness of breath. She has a risk factors for coronary artery disease. After the syncope workup recommend ischemic workup with a stress test. Patient denied any chest pain. She does not want to have the stress test done. We will continue medical treatment and follow up. 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 For sinus pause 7.3 seconds. Normally function. History of syncope [id number] Z87.898 history of syncope secondary to sinus pause. Dual-chamb er pacemaker in place. Normally function no recurrence of symptoms. Health Concerns Section Related Observation LastModified by Organization Detai ls LastModified Time None Recorded Concern Status LastModified by Organization Details LastModified Time None Recorded Advance Directives Directive None Recorded Payers Insurance Date Sequence Insurance Name Policy Number Policy Calderon Covered Member ID Calderon Member ID Guarantor Name 04/06/2025 1 [employer] [employer] (MEDICARE REPLACEMENT HMO) [id number] Debbie Campbell [id number] Debbie Campbell 01/14/2025 1 [id number] (MEDICARE REPLACEMENT/AD VANTAGE - PPO) Debbie Campbell [id number] Debbie Campbell Notes Date Note Type Note Provider Name and Address Organization Details Recorded Time 10/27/2022 text/html Patient is here today for evaluation of dizziness . She reports this is most prevalent when she is rising from either a seated to a standing position or from a lying to a sitting position. She denies any symptoms of true vertigo. She denies any changes in her hearing or any significant tinnitus. She is still very independent with her activities of daily living. Isabela Hernandez MD [address], [place], [address], [facility] [place] & [place] 11/03/2022 12:42:44 11/22/2022 text/html Patient states s he has a h/o trigeminal neuralgia. Started getting some pains on left side of face about 2-3 days ago. Pain is a sharp pain which feels like lightning through her face and into her left ear. Has tried taking some extra doses of Tegretol but hasn't helped. Her neurologist is out of the office until 4 days from now. When asked about the Gabapentin that is on her med list, she states she has not taken that for several years. She thinks it was replaced by the Tegretol.Has next appt with oncology in December for h/o lymphoma. Ernie Escobedo MD [address], [place], [address], [facility] & [place] 11/22/2022 17:57:52 11/29/2022 text/html Debbie comes in f or a follow up on her TGN. She was last seen 11/30/21. She has been on carbamazepine to manage her neuralgia.Today she reports having increased flares of facial pain for the last week. The character of the pain is the same but now she even has more pain in her ear. She can not identify any triggers for this flare up.She has continued with the tegretol twice a day. She has not missed any doses.She did try to increase her tegretol to two tablets at bedtime after discussing her pain flare up with her PCP. She has done this for the last few days but so far she can't tell it has helped at all.She can't really eat or move around without jabs of sharp pain in the left side of her face. She tells me she has her next cancer check up in December. Her previous check ups have been good. Tamar Almeida DO [address], [place], [address], [facility] & [place] 11/29/2022 15:00:29 12/26/2024 text/html 79 year old fema poli with Past medical history significant for history of lymphoma stage IV last chemotherapy 2020, history of dyslipidemia, history of low blood pressure on midodrine.Patient came today for cardiovascular consultation because she had history of syncope on 12/11/2024 and she was taken to the ER at that time. There was no warning sinus. When she woke up she still feels drowsy. She did not hit her head. She denied chest pain. She had history of exertional shortness of breath and palpitation. She had history of syncope in the past. She denied orthopnea PND or leg swelling. No cough sputum or hemoptysis no bleeding anywhere. No dizziness or vertigo.EKG done today results were discussed with the patient.No orthostatic hypotension. EK12/11/24 Normal sinus rhythm, normal EKG. CTA chest: 12/11/24 No PE. no acute lung disease. Danial Mcclain MD [address], [place], [address], [facility] & [place] 12/31/2024 10:55:28 01/22/2025 text/html 79 year old fema poli with Past medical history significant for history of lymphoma stage IV last chemotherapy 2020, history of dyslipidemia, history of low blood pressure on midodrine.Patient was evaluated for cardiovascular consultation because she had history of syncope on 12/11/2024 and she was taken to the ER at that time. patient had echocardiogram and Holter monitor done. Her echo showed normal systolic function but her Holter monitor showed multiple sinus pauses the longest was 7.3 seconds. She was called from home and sent to the ER. [facility] Archer dual-chamber pacemaker.Patient came today for follow up after the pacemaker placement. She is doing well no recurrence of her syncope or lightheadedness. The wound is healing well. The pacemaker is normally functioning. Interrogation was done 01/15/2025. Patient is happy with the results of the pacemaker. No chest pain no shortness of breath. EK01/22/25 sinus rhythm with occasional atrial paced complexes. Abott dual chamber pacemaker implant on 01/15/25 with LB pacing.[facility] [id number] Echocardiogram: 01/14/25Normal LV size and normal systolic function. EF 55-60%.No hemodynamically significant valvular heart disease. Holter monitor: for 7days done 12/26/24 - 01/04/25sinus pauses longest 7.3 seconds. EK12/11/24 Normal sinus rhythm, normal EKG. CTA chest: 12/11/24 No PE. no acute lung disease. Danial Mcclain MD [address], [place], [address], [place] [facility] [place] [facility] [place] 01/30/2025 10:13:34 OBGyn Episode No OBEpisode recorded.
--- NOTE | 2025-04-07 14:38 | A.OFFVIS_ITS ---
[facility] Disclaimer: The information contained in this section may have been updated after the patient was seen, as this information can be updated by other users. Medical History Arthritis Diverticulitis of colon GERD (gastroesophageal reflux disease) Sleep apnea Arrhythmia Cancer Anemia Surgical History Hx of cholecystectomy H/O hernia repair H/O tubal ligation Family History Other Cancer Diabetes Heart disease Rheumatoid arthritis Seizures Stroke Social History Smoking Status: Never smoker alcohol intake: never current occupational status: other Travel in the last 8 weeks?: None PM Subjective & Objective Subjective Subjective:: Patient is a pleasant 79-year-old female who presents today for increased pain in her hips. She rates her pain a 4 or 5 out of 10. She does state this pain is worse with prolonged positioning such as laying down. Patient denies any new falls or injuries. Patient does state that the compounded cream did significant help a lot of her pains in her knee and hip. She is requesting refills on this. Patient was also given baclofen 5 mg at bedtime in the past however states that from her last visit she ended up having a lot of episodes of passing out and that is ended up having to have a pacemaker placed. Patient states that she is doing much better and not having those same issues however she has not tried back the baclofen to see if it makes any difference. Her Renzo has been reviewed and is appropriate. Review of Systems: General: No recent weight changes, no fever, no sleep disturbances Respiratory: No cough, no shortness of air, no recurring pulmonary infections Cardiovascular/peripheral vascular: No chest pain, no palpitations, no edema, no shortness of breath Gastrointestinal: No new onset incontinence, normal bowel movements reported Genitourinary: No new onset incontinence Musculoskeletal: Bilateral hip pain, bilateral knee pain Psychiatric: [Normal mood/affect] Neurological: [Denies weakness in extremities], [denies balance issues] Pain at rest (0-10 scale): 5 Objective Objective:: Physical Exam: General: Alert and oriented x3, no acute distress, pleasant and cooperative Lungs: Respirations even and unlabored, symmetrical chest expansion Eyes: PERRL Musculoskeletal: Flexion and extension of bilateral hips somewhat guarded secondary to pain, [antalgic gait noted] point tenderness bilateral greater trochanteric bursa's Neurological: Speech clear, no gross sensory deficit Has patient had previous pain injection?: No Conservative treatment options previously tried: Home exercise plan Length of treatment: Longer than 12 weeks Meds Home Medications and Allergies Home Medications ?Medication ?Instructions ?Recorded ?Confirmed ?Type atorvastatin 20 mg tablet 20 mg PO DAILY Cholesterol 08/15/24 10/02/24 History midodrine 5 mg tablet 5 mg PO TID TMJ 08/15/24 10/02/24 History pantoprazole 40 mg tablet,delayed 40 mg PO DAILY GERD 08/15/24 10/02/24 History release baclofen 5 mg tablet 5 mg PO HS #30 tabs 12/13/24 Rx New Prescriptions to Start Prescriptions: Allergies Allergy/AdvReac Type Severity Reaction Status Date / Time ciprofloxacin (From Cipro) Allergy Hives Verified 08/15/24 14:37 Assessment and Plan *Assessment and plan (1) Greater trochanteric bursitis of both hips: Status: Acute Category: Medical Code(s): M70.61 - Trochanteric bursitis, right hip; M70.62 - Trochanteric bursitis, left hip Plan I did discuss with the patient that I do believe due to her limited range of motion and point tenderness along her bilateral greater trochanteric bursa's that she would benefit from bursa injections. Patient however states her last injection she was charged $250 [id number] and where she is on a fixed income that she cannot afford this. Patient does state that she did even see financial services however all they were offering was a payment plan. I did review over risk and benefits regarding these injections and counseled the patient that if we need to I can send her to the [place] location for these injections. Patient was counseled to call our office if she would like to proceed forward with the procedure. Patient will be refilled on her compounded cream. Patient will return to clinic in 6 weeks. Patient has been instructed to contact the clinic with any concerns before the next appointment. Dr. Esteban has reviewed this note and agrees with this plan of care. This note was dictated using voice recognition software and make contain errors or omissions. All injections are used with Lidocaine, Bupivacaine and dexamethasone. Occasionally urine drug screen is needed to verify patient's compliance with our office pain contract. This is ordered based off specific treatments related to chronic pain with the potential to abuse certain medications.
[2025-04-07 15:04] VITALS: BP 107/51; PULSE 63; RESP 18; O2SAT 96; BMI 25.7
== END 2025-04-07 23:59 | disposition home or self-care (01) ==
LOC: SC.PAIN 14:04
PROVIDERS: Visit Provider Nurse Practitioner Family
DX: M70.61 Trochanteric bursitis, right hip (principal); M70.62 Trochanteric bursitis, left hip
CPT/HCPCS: 99212; G0463